=== PATIENT | female | born 2000 | race Hispanic/Latino ===

== ENCOUNTER 2022-03-30 20:34 | Emergency (ER) | payer OTHER ==
[2022-03-30 21:20] LABS: Urine Blood Trace-intact (Negative); Urine Glucose Negative (Negative); Urine Protein Trace (Negative); Urine pH 7.5 (5.0-7.0)
[2022-03-30] MEDS ORDERED: ONDANSETRON 4 MG/2 ML VIAL ONE (21:48)
[2022-03-30] MEDS ORDERED: NA CHLORIDE 0.9% 1,000 ML ONE (21:48)
[2022-03-30 21:52] LABS: Absolute Lymphocytes (CBC) 3.3 K/uL (0.7-4.9); Hematocrit 40.6 % (36.0-45.0); Lymphocytes % 32.4 % (15.3-44.8); MCV 87.4 fL (80-100); MPV 8.5 fL (7.6-11.3); RBC Red Blood Cell Count 4.64 M/uL (3.86-4.86)
[2022-03-30 22:02] LABS: Albumin 3.9 g/dL (3.4-5.0); Bilirubin Total 0.2 mg/dL (0.2-1.0); Potassium 3.9 mmol/L (3.5-5.1); Protein, Total 7.1 g/dL (6.4-8.2)
--- NOTE | 2022-03-30 22:48 | RAD REPORT ---
EXAM DESCRIPTION: CTAbdomen Pelvis W Contrast - 03/30/2022 10:40 pm CLINICAL HISTORY: lower abd pain, rectal bleeding COMPARISON: No comparisons TECHNIQUE: CT of the abdomen and pelvis was performed with IV contrast. All CT scans are performed using dose optimization technique as appropriate and may include automated exposure control or mA/KV adjustment according to patient size. FINDINGS: Lower chest: No acute abnormality. Liver: No acute abnormality or suspicious lesions. Biliary: No biliary ductal dilatation. Stomach: No significant focal abnormality. Duodenum: No significant focal abnormality. Pancreas: No significant abnormality. Spleen: No significant abnormality. Adrenal: No suspicious lesions. Kidney/ureter: No hydronephrosis. No renal calculi. Retroperitoneum: No retroperitoneal adenopathy. Vascular: No aneurysm. Bowel: No significant focal abnormality. Normal appendix . Peritoneum: Trace pelvic free fluid . Bladder: Grossly unremarkable. Reproductive: No adnexal masses. Bones: No acute fracture. Other: n/a IMPRESSION: No acute intra-abdominal or pelvic finding. Normal appendix. No source of gastrointestin al bleeding is identified.
--- NOTE | 2022-03-30 23:13 | ER ---
Nurse's Notes [facility] Name: Danica Chatterjee Age: 21 yrs Sex: Female : 2000 Arrival Date: 03/30/2022 Time: 20:39 Bed 5 Private MD: Diagnosis: Nausea with vomiting, unspecified;Diarrhea, unspecified;Lower abdominal pain, unspecified;GI Bleed/ Gastrointestinal hemorrhage, unspecified Presentation: 03/30 20:56 Chief complaint: Patient states: rectal bleeding X3 days. nausea, vomiting, diarrhea lg3 and ABD pain for 2 weeks. Coronavirus screen: Client denies travel out of the [place] in the last 14 days. At this time, the client does not indicate any symptoms associated with coronavirus-19. Ebola Screen: No symptoms or risks identified at this time. Initial Sepsis Screen: Does the patient meet any 2 criteria? No. Patient's initial sepsis screen is negative. Does the patient have a suspected source of infection? No. Patient's initial sepsis screen is negative. Risk Assessment: Do you want to hurt yourself or someone else? Patient reports no desire to harm self or others. Onset of symptoms is unknown. 20:56 Method Of Arrival: Ambulatory lg3 20:56 Acuity: DHAVAL 3 lg3 Triage Assessment: 20:58 General: Appears in no apparent distress. comfortable, Behavior is calm, cooperative. lg3 Pain: Complains of pain in abdomen Pain currently is 8 out of 10 on a pain scale. EENT: No deficits noted. No signs and/or symptoms were reported regarding the EENT system. Neuro: Level of Consciousness is awake, alert, obeys commands, Oriented to person, place, time, situation. Cardiovascular: No deficits noted. Denies chest pain, shortness of breath, Capillary refill < 3 seconds Clubbing of nail beds is absent JVD is absent Patient's skin is warm and dry. Respiratory: No deficits noted. Airway is patent Trachea midline Respiratory effort is even, unlabored, Respiratory pattern is regular, symmetrical. GI: Abdomen is flat, non-distended, Abd is soft X 4 quads Abdomen is tender to palpation in right lower quadrant and left lower quadrant Reports lower abdominal pain, diarrhea, rectal bleeding, bloody stool, intolerance of fluids, intolerance of food, nausea, vomiting. : No deficits noted. No signs and/or symptoms were reported regarding the genitourinary system. Derm: No deficits noted. No signs and/or symptoms reported regarding the dermatologic system. Skin is intact, is healthy with good turgor, Skin is dry, Skin is normal. Musculoskeletal: No deficits noted. No signs and/or symptoms reported regarding the musculoskeletal system. Circulation, motion, and sensation intact. Range of motion: intact in all extremities. 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 - Social history:: Smoking status: Patient denies any tobacco usage or history of. Patient/guardian denies using alcohol, street drugs. Assessment: 21:00 General: Appears in no apparent distress. comfortable, Behavior is calm, cooperative, jb4 appropriate for age. Pain: Complains of pain in abdomen Pain does not radiate. Pain currently is 6 out of 10 on a pain scale. Quality of pain is described as bloating. Neuro: Level of Consciousness is awake, alert, obeys commands, Oriented to person, place, time, situation. Cardiovascular: Patient's skin is warm and dry. Respiratory: Airway is patent Respiratory effort is even, unlabored, Respiratory pattern is regular, symmetrical. GI: Abdomen is flat, non-distended. : No deficits noted. EENT: No deficits noted. Derm: Skin is intact, Skin is pink, warm \T\ dry. Musculoskeletal: Circulation, motion, and sensation intact. Range of motion:. 22:00 Reassessment: Patient appears in no apparent distress at this time. Patient and/or jb4 family updated on plan of care and expected duration. Pain level reassessed. Patient is alert, oriented x 3, equal unlabored respirations, skin warm/dry/pink. Vital Signs: 20:56 BP 133 / 85; Pulse 86; Resp 18 S; Temp 98.4(TE); Pulse Ox 100% on R/A; Weight 80.29 kg; lg3 Height 5 ft. 3 in. (160.02 cm) (R); Pain 6/10; 22:54 BP 117 / 66; Pulse 90; Resp 18; Pulse Ox 100% ; jb4 20:56 Body Mass Index 31.35 (80.29 kg, 160.02 cm) lg3 ED Course: 20:39 Patient arrived in ED. rg4 20:45 [facility] Hous[facility]-C [facility]. kb 20:45 Memo Lazo DO is Attending Physician. kb 20:58 Triage completed. lg3 20:58 Arm band placed on right wrist. lg3 21:08 Oscar Ignacio, RN is Primary Nurse. jb4 21:30 Urine --Ancillary (enter results) Sent. 22:42 CT Abd/Pelvis - IV Contrast Only In Process Unspecified. EDMS Administered Medications: 21:54 Drug: NS 0.9% 1000 ml Route: IV; Rate: 1 bolus; Site: right antecubital; jb4 23:27 Follow up: Response: No adverse reaction; IV Status: Order to discontinue infusion; IV jb4 Intake: 900ml ; pt discharged 21:54 Drug: Zofran (Ondansetron) 4 mg Route: IVP; Site: right antecubital; jb4 22:30 Follow up: Response: No adverse reaction; Marked relief of symptoms jb4 23:26 Drug: Bentyl (dicyclomine) 20 mg Route: PO; jb4 23:26 Follow up: Response: Medication administered at discharge. jb4 23:26 Drug: Pepcid (famotidine) 20 mg Route: IVP; Site: right antecubital; jb4 23:26 Follow up: Response: Medication administered at discharge. jb4 Intake: 23:27 IV: 900ml; Total: 900ml. jb4 Outcome: 23:12 Discharge ordered by . kb 23:28 Patient left the ED. jb4 Signatures: Dispatcher [employer] EDMS Betty Houser FNP-C FNP-Catarina Edwards rg4 Oscar Ignacio, RN RN jb4 Chimoa Springer, SANIYA RN lg3 Fabiola Trujillo
--- NOTE | 2022-03-30 23:13 | EDPHYS ---
Physician Documentation [facility] Name: Danica Chatterjee Age: 21 yrs Sex: Female : 2000 Arrival Date: 03/30/2022 Time: 20:39 Bed 5 Private MD: ED Physician Memo Lazo HPI: 03/30 23:22 This 21 yrs old Female presents to ER via Ambulatory with complaints of kb Vomiting/Diarrhea, Rectal Bleeding. 23:22 The patient presents to the emergency department with nausea, vomiting, diarrhea. kb Onset: The symptoms/episode began/occurred 2 week(s) ago. Possible causes: unknown. The symptoms are aggravated by nothing. The symptoms are alleviated by nothing. Associated signs and symptoms: Pertinent positives: abdominal pain, diarrhea, GI bleeding, nausea, vomiting. Severity of symptoms: At their worst the symptoms were moderate in the emergency department the symptoms are unchanged. The patient has experienced a previous episode. The patient has not recently seen a physician. Pt reports n/v/d for 2 weeks with bright red rectal bleeding for 3 days. Reports this happened once before about 4 months ago, was seen by GI and discussed a colonoscopy, but didn't have it done. . 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 - Social history:: Smoking status: Patient denies any tobacco usage or history of. Patient/guardian denies using alcohol, street drugs. ROS: 23:22 Constitutional: Negative for fever, chills, and weight loss. kb 23:22 Abdomen/GI: Positive for abdominal pain, nausea, vomiting, and diarrhea, rectal bleeding. 23:22 All other systems are negative. Exam: 23:22 Constitutional: This is a well developed, well nourished patient who is awake, alert, kb and in no acute distress. Head/Face: Normocephalic, atraumatic. ENT: Moist Mucous membranes Cardiovascular: Regular rate and rhythm with a normal S1 and S2. No gallops, murmurs, or rubs. No pulse deficits. Respiratory: Respirations even and unlabored. No increased work of breathing. Talking in full sentences Skin: Warm, dry with normal turgor. Normal color. MS/ Extremity: Pulses equal, no cyanosis. Neurovascular intact. Full, normal range of motion. Neuro: Awake and alert, GCS 15, oriented to person, place, time, and situation. Moves all extremities. Normal gait. Psych: Awake, alert, with orientation to person, place and time. Behavior, mood, and affect are within normal limits. 23:22 Abdomen/GI: Inspection: abdomen appears normal, Bowel sounds: normal, Palpation: soft, in all quadrants, mild abdominal tenderness, in the right lower quadrant, moderate abdominal tenderness, in the left lower quadrant. Vital Signs: 20:56 BP 133 / 85; Pulse 86; Resp 18 S; Temp 98.4(TE); Pulse Ox 100% on R/A; Weight 80.29 kg; lg3 Height 5 ft. 3 in. (160.02 cm) (R); Pain 6/10; 22:54 BP 117 / 66; Pulse 90; Resp 18; Pulse Ox 100% ; jb4 20:56 Body Mass Index 31.35 (80.29 kg, 160.02 cm) lg3 MDM: 20:58 Patient medically screened. kb 23:22 Differential diagnosis: Nonspecific abd pain, gastritis, diverticulitis, kb gastroenteritis, gi bleed. Data reviewed: vital signs, nurses notes. Consideration of Admission/Observation Escalation of care including admission/observation considered. Counseling: I had a detailed discussion with the patient and/or guardian regarding: the historical points, exam findings, and any diagnostic results supporting the discharge/admit diagnosis, lab results, radiology results, the need for outpatient follow up, a transactional paralegal, to return to the emergency department if symptoms worsen or persist or if there are any questions or concerns that arise at home. ED course: H\T\H wnl. Pt given return precautions and educated to follow up with GI for further evaluation. Verbal understanding received. . 03/30 20:59 Order name: CBC with Diff; Complete Time: 21:55 kb 03/30 20:59 Order name: CMP; Complete Time: 22:07 kb 03/30 20:59 Order name: Lipase; Complete Time: 22:07 kb 03/30 20:59 Order name: CT Abd/Pelvis - IV Contrast Only; Complete Time: 22:52 kb 03/30 21:21 Order name: Urine Dipstick-Ancillary; Complete Time: 21:24 EDMS 03/30 21:22 Order name: Urine --Ancillary (enter results); Complete Time: 22:24 oe 03/30 20:59 Order name: IV Saline Lock; Complete Time: 21:48 kb 03/30 20:59 Order name: Labs collected and sent; Complete Time: 21:48 kb 03/30 20:59 Order name: Urine Dipstick-Ancillary (obtain specimen); Complete Time: 21:22 kb 03/30 20:59 Order name: Urine Test (obtain specimen); Complete Time: 21:22 kb Administered Medications: 21:54 Drug: NS 0.9% 1000 ml Route: IV; Rate: 1 bolus; Site: right antecubital; jb4 23:27 Follow up: Response: No adverse reaction; IV Status: Order to discontinue infusion; IV jb4 Intake: 900ml ; pt discharged 21:54 Drug: Zofran (Ondansetron) 4 mg Route: IVP; Site: right antecubital; jb4 22:30 Follow up: Response: No adverse reaction; Marked relief of symptoms jb4 23:26 Drug: Bentyl (dicyclomine) 20 mg Route: PO; jb4 23:26 Follow up: Response: Medication administered at discharge. jb4 23:26 Drug: Pepcid (famotidine) 20 mg Route: IVP; Site: right antecubital; jb4 23:26 Follow up: Response: Medication administered at discharge. jb4 Disposition: 03/31 03:51 Co-signature as Attending Physician, Memo Lazo DO I reviewed the patient's care ms3 provided by the Advanced Practice Provider and agree with the diagnosis and treatment plan. Disposition Summary: 03/30/22 23:12 Discharge Ordered Location: Home kb Condition: Stable kb Diagnosis - Nausea with vomiting, unspecified kb - Diarrhea, unspecified kb - Lower abdominal pain, unspecified kb - GI Bleed/ Gastrointestinal hemorrhage, unspecified kb Followup: kb - With: Emergency Department - When: As needed - Reason: Worsening of condition Followup: kb - With: Private Physician - When: 2 - 3 days - Reason: Recheck today's complaints, Continuance of care, Re-evaluation by your physician Discharge Instructions: - Discharge Summary Sheet kb - Nausea and Vomiting, Adult, [id number] kb - Abdominal Pain, Adult, [id number] kb - Diarrhea, Adult, [id number] kb - Gastrointestinal Bleeding, [id number] kb Forms: - Medication Reconciliation Form kb - Thank You Letter kb - Antibiotic Education kb - Prescription Opioid Use kb Prescriptions: - dicyclomine 20 mg Oral Tablet - take 1 tablet by ORAL route 4 times per day As needed; 20 tablet; Refills: 0, kb Product Selection Permitted - ondansetron 4 mg Oral - take 1 tablet by SUBLINGUAL route every 8 hours As needed; 15 tablet; Refills: kb 0, Product Selection Permitted Signatures: Dispatcher [employer] Betty Bunch, HIGH SCHOOL ADMISSIONS REPRESENTATIVE-C HIGH SCHOOL ADMISSIONS REPRESENTATIVE-Marianob Oscar Ignacio, RN RN jb4 Chioma Springer RN RN lg3 Memo Lazo DO DO ms3
[2022-03-30] MEDS ORDERED: FAMOTIDINE 20 MG/2 ML VIAL IV ONE (23:20)
[2022-03-30] MEDS ORDERED: DICYCLOMINE HCL 10 MG CAP ONE (23:20)
[2022-03-31 00:25] VITALS: TEMP 98.4; O2SAT 100
[2022-03-31 00:26] VITALS: BP 117/66
== END 2022-03-30 23:28 | disposition home or self-care (01) ==
LOC: ER 20:34
DX: R11.2 Nausea with vomiting, unspecified (principal); R19.7 Diarrhea, unspecified; K92.2 Gastrointestinal hemorrhage, unspecified; R10.30 Lower abdominal pain, unspecified
CPT/HCPCS: 96361; 85025; 36415; 81025; 81003; 83690; 80053; 74177; 96375; 96374; 99283; Q9967; J7030; J2405